=== PATIENT | female | born 1995 | race Two or more races ===

== ENCOUNTER 2017-08-24 12:34 | Emergency (ER) | payer MEDICAID, OTHER ==
[~2017-08-24] VITALS: Ht 170.2 cm; Wt 77.1 kg
[~2017-08-24 12:34] MED LIST: ALBUPOW26; RISP1TAB36 PO
[2017-08-24 12:46] VITALS: BP 124/66
== END 2017-08-24 14:13 | disposition left against medical advice (07) ==
LOC: EDBD 12:34 → ER 12:34
DX: N93.9 Abnormal uterine and vaginal bleeding, unspecified (principal); Z53.21 Procedure and treatment not carried out due to patient leaving prior to being seen by health care provider

== ENCOUNTER 2019-06-28 16:45 | Emergency (ER) | payer MEDICAID ==
[~2019-06-28] VITALS: Ht 170.2 cm; Wt 90.7 kg
[2019-06-28 20:25] VITALS: BP 105/69
[2019-06-28 20:35] LABS: Basophils # (auto) 0 uL; Basophils % (auto) 0.4 % (0.0-2.0); Hemoglobin 10.6 g/dL (12.2-16.2); Lymphocytes # (auto) 2.4 uL; Platelet Count (auto) 439 10^3/uL (140-450); Red Cell Distribution Width 16.9 % (11.8-14.3)
[2019-06-28 20:36] LABS: Eosinophils # (auto) 0 uL; Eosinophils % (auto) 0.5 % (0.0-7.0); Hematocrit 33.6 % (36.0-46.0); Lymphocytes % (auto) 23.7 % (10.0-50.0); Mean Corpuscular Hemoglobin 22.3 pg (28.0-32.0); Mean Corpuscular Hgb Conc. 31.4 g/dL (32.0-36.0); Mean Corpuscular Volume 71.1 fL (80.0-100.0); Monocytes # (auto) 0.5 uL; Monocytes % (auto) 5.3 % (0.0-12.0); Neutrophils % (auto) 70.1 % (37.0-80.0); Red Blood Cells 4.72 10^6/uL (4.0-5.20)
[2019-06-28 20:57] LABS: Albumin 3.5 g/dL (3.4-5.0); Calcium 8.2 mg/dL (8.5-10.1); Potassium 3.4 mmol/L (3.5-5.1)
[2019-06-28 21:00] LABS: BUN/Creatinine Ratio 12.2; Bilirubin, Total 0.3 mg/dL (0.2-1.0); Total Protein 8.3 g/dL (6.4-8.2)
== END 2019-06-28 22:40 | disposition left against medical advice (07) ==
LOC: EDBD 16:45 → EDUNIT# 16:45 → ER 16:45
DX: R55 Syncope and collapse (principal); I24.9 Acute ischemic heart disease, unspecified; J45.909 Unspecified asthma, uncomplicated; Z88.8 Allergy status to other drugs, medicaments and biological substances; Z79.899 Other long term (current) drug therapy
CPT/HCPCS: 36415; 70450; 80053; 84484; 85025; 93005